=== PATIENT | male | born 1975 ===

== ENCOUNTER 2023-08-29 11:43 | Emergency (ER) | payer BC ==
[2023-08-29] MEDS: Ibuprofen 600 MG Tab PO ONE (12:32)
[2023-08-29] MEDS: Acetaminophen/HYDROcodone 325-5 MG Tab PO ONE (12:32)
[2023-08-29] MEDS: Diphtheria,Pertussis(Acell),Tetanus Vaccine 0.5 ML Syringe IM ONE (12:33)
[2023-08-29] MEDS: Bacitracin Oint 1 GM U/D Packet TOP ONE (12:33)
== END 2023-08-29 13:30 | disposition home or self-care (01) ==
LOC: MW.ED 11:43
DX: T20.10XA Burn of first degree of head, face, and neck, unspecified site, initial encounter (principal); T23.102A Burn of first degree of left hand, unspecified site, initial encounter; T23.101A Burn of first degree of right hand, unspecified site, initial encounter; Z75.8 Other problems related to medical facilities and other health care; Z79.899 Other long term (current) drug therapy; Z23 Encounter for immunization; X04.XXXA Exposure to ignition of highly flammable material, initial encounter
CPT/HCPCS: 71045; 90471; 90715; 93005; 99283; A9270; 93010